=== PATIENT | male | born 1960 | race Caucasian/White ===

== ENCOUNTER 2017-01-21 18:27 | Emergency (ER) | payer SELFPAY ==
[~2017-01-21] VITALS: Ht 167.6 cm; Wt 68.0 kg
[2017-01-21 18:49] VITALS: BP 140/87
== END 2017-01-21 18:43 | disposition left against medical advice (07) ==
LOC: EDBD 18:27 → ER 18:35
DX: F10.10 Alcohol abuse, uncomplicated (principal); Z53.21 Procedure and treatment not carried out due to patient leaving prior to being seen by health care provider

== ENCOUNTER 2018-12-10 09:40 | Emergency (ER) | payer MEDICAID, OTHER ==
[~2018-12-10] VITALS: Ht 170.2 cm; Wt 72.6 kg
[2018-12-10 10:13] VITALS: BP 134/87
[2018-12-10] MEDS ORDERED: KETOROLAC TROMETH 60MG/2ML VIAL IM ONE (10:30)
== END 2018-12-10 11:16 | disposition home or self-care (01) ==
LOC: ER 09:45
DX: M54.2 Cervicalgia (principal)
CPT/HCPCS: 96372; 99283; J1885

== ENCOUNTER 2019-09-22 13:53 | Inpatient (IN) | payer MEDICAID ==
[~2019-09-22] VITALS: Ht 172.7 cm; Wt 73.2 kg
[2019-09-22 14:27] LABS: Basophils # (auto) 0 10 ^3/uL (0-0.2); Eosinophils # (auto) 0 10 ^3/uL (0-0.8); Hemoglobin 7.4 g/dL (13.5-17.5); Lymphocytes # (auto) 0.3 10 ^3/uL (0.4-5.4); Mean Corpuscular Hemoglobin 28.1 pg (28.0-32.0); Monocytes # (auto) 0.7 10 ^3/uL (0-1.3); Monocytes % (auto) 11.5 % (0.0-12.0); Neutrophils % (auto) 82.9 % (37.0-80.0)
[2019-09-22 14:40] LABS: Albumin 2.4 g/dL (3.4-5.0); Calcium 7.4 mg/dL (8.5-10.1); Potassium 4.1 mmol/L (3.5-5.1)
[2019-09-22 14:44] LABS: BUN/Creatinine Ratio 17.6; Bilirubin, Total 12.4 mg/dL (0.2-1.0); Total Protein 6.7 g/dL (6.4-8.2)
[2019-09-22 15:24] LABS: Basophils % (auto) 0.8 % (0.0-2.0); Eosinophils % (auto) 0.2 % (0.0-7.0); Hematocrit 23.4 % (41.0-53.0); Lymphocytes % (auto) 4.6 % (10.0-50.0); Mean Corpuscular Hgb Conc. 31.9 g/dL (32.0-36.0); Mean Corpuscular Volume 88.2 fL (80.0-100.0); Nucleated Red Blood Cells % 0.1 %; Platelet Count (auto) 159 10^3/uL (140-450); Red Blood Cells 2.65 10^6/uL (4.5-5.90); White Blood Cell 6.1 10^3/uL (4.4-10.8)
[2019-09-22 15:41] LABS: Red Cell Distribution Width 21.1 % (11.8-14.3)
[2019-09-22 15:55] LABS: Amylase 143 U/L (25-115); Lipase 1268 U/L (73-393)
[2019-09-22] MEDS ORDERED: PIPERACILLIN-TAZOB 3.375GM 100 ML IV ONE (16:45)
[2019-09-22] MEDS ORDERED: PANTOPRAZOLE 40mg/50ML NS AE 50 ML IV ONE (16:45)
[2019-09-22] MEDS ORDERED: SODIUM CHL 3% 500 ML IV ONE (16:45)
[2019-09-22 17:56] LABS: Lactic Acid w/Reflex 4.3 mmol/L (0.4-2.0)
[2019-09-22] MEDS ORDERED: LORazepam 2MG/ML-1ML VIAL IV ONE (18:30)
[2019-09-22] MEDS ORDERED: THIAMINE 100mg/ml INJ (200mg/2ml VIAL) IV ONE (18:30)
[2019-09-22] MEDS ORDERED: chlordiazePOXIDE HCL 5 MG CAP PO ONE (18:30)
[2019-09-22] MEDS ORDERED: NITROGLYCERIN 0.4 MG SL TAB SL PRN (19:00)
[2019-09-22] MEDS ORDERED: MORPHINE SULF INJ 2 MG/ML SYRINGE 1ML IV PRN (19:00)
[2019-09-22] MEDS ORDERED: SODIUM CHLORIDE 0.9% 1,000 ML IV ONE (19:00)
[2019-09-22] MEDS: PANTOPRAZOLE 40 MG TAB PO SCH (21:47)
[2019-09-23] VITALS (10 sets, daily range): BP systolic 94–123; BP diastolic 53–69
[2019-09-23 05:56] LABS: Basophils # (auto) 0 10 ^3/uL (0-0.2); Eosinophils # (auto) 0 10 ^3/uL (0-0.8); Eosinophils % (auto) 0.4 % (0.0-7.0); Lymphocytes # (auto) 0.2 10 ^3/uL (0.4-5.4); Mean Corpuscular Hemoglobin 28.2 pg (28.0-32.0); Monocytes # (auto) 0.5 10 ^3/uL (0-1.3); Neutrophils # (auto) 3.3 10 ^3/uL (1.6-8.6); Nucleated Red Blood Cells % 0.3 %; Red Blood Cells 2.32 10^6/uL (4.5-5.90); White Blood Cell 4.1 10^3/uL (4.4-10.8)
[2019-09-23 06:04] LABS: Basophils % (auto) 1.1 % (0.0-2.0); Hematocrit 20.7 % (41.0-53.0); Mean Corpuscular Hgb Conc. 31.6 g/dL (32.0-36.0); Mean Corpuscular Volume 89.1 fL (80.0-100.0); Monocytes % (auto) 13.4 % (0.0-12.0); Neutrophils % (auto) 81.1 % (37.0-80.0); Platelet Count (auto) 113 10^3/uL (140-450)
[2019-09-23 06:09] LABS: Albumin 2.1 g/dL (3.4-5.0); Calcium 6.9 mg/dL (8.5-10.1)
[2019-09-23 06:18] LABS: INR 1.96 (0.9-1.15); Partial Thromboplastin Time 33.1 sec (23.64-32.05)
[2019-09-23 06:20] LABS: BUN/Creatinine Ratio 20.2; Bilirubin, Total 12.7 mg/dL (0.2-1.0); Total Protein 5.8 g/dL (6.4-8.2)
[2019-09-23 06:22] LABS: Hemoglobin 6.5 g/dL (13.5-17.5); Red Cell Distribution Width 20.6 % (11.8-14.3)
[2019-09-23] MEDS: chlordiazePOXIDE HCL 25 MG CAP PO SCH ×5 (06:26→23:40)
[2019-09-23 08:59] LABS: Urine Bacteria NONE SEEN /hpf (None Seen); Urine Blood TRACE /uL (Negative); Urine Specific Gravity 1.017 (1.001-1.035); Urine WBC <1 /hpf (0 - 3)
[2019-09-23 09:23] LABS: Eosinophils % (auto) 0.3 % (0.0-7.0); Red Cell Distribution Width 19.7 % (11.8-14.3)
[2019-09-23 09:25] LABS: Basophils # (auto) 0 10 ^3/uL (0-0.2); Basophils % (auto) 0.3 % (0.0-2.0); Eosinophils # (auto) 0 10 ^3/uL (0-0.8); Hematocrit 22.3 % (41.0-53.0); Hemoglobin 7.2 g/dL (13.5-17.5); Lymphocytes # (auto) 0.2 10 ^3/uL (0.4-5.4); Lymphocytes % (auto) 4.1 % (10.0-50.0); Mean Corpuscular Hemoglobin 28.3 pg (28.0-32.0); Mean Corpuscular Hgb Conc. 32.4 g/dL (32.0-36.0); Mean Corpuscular Volume 87.2 fL (80.0-100.0); Monocytes # (auto) 0.5 10 ^3/uL (0-1.3); Monocytes % (auto) 12.7 % (0.0-12.0); Neutrophils # (auto) 3.2 10 ^3/uL (1.6-8.6); Neutrophils % (auto) 82.6 % (37.0-80.0); Nucleated Red Blood Cells % 0.3 %; Platelet Count (auto) 103 10^3/uL (140-450); Red Blood Cells 2.55 10^6/uL (4.5-5.90); White Blood Cell 3.9 10^3/uL (4.4-10.8)
[2019-09-23] MEDS: PANTOPRAZOLE 40 MG TAB PO SCH ×2 (09:36→22:48)
[2019-09-23] MEDS ORDERED: FOLIC ACID 1 MG, MULTIPLE VITAMIN 10 ML, MAGNESIUM SULF SDV 50% 8 MEQ, THIAMINE INJ 100... INJ SCH ×5 (12:00)
[2019-09-23 13:14] LABS: Alcohol, Urine < 3.0 mg/dL (0-5); Amphetamine Screen, Urine POSITIVE (NEGATIVE); Barbiturate Scree,Urine NEGATIVE (NEGATIVE); Benzodiazephine Screen, Urine NEGATIVE (NEGATIVE); Cannabinoid Screen, Urine NEGATIVE (NEGATIVE); Cocaine Screen, Urine NEGATIVE (NEGATIVE); Opiate Scree,Urine NEGATIVE (NEGATIVE); Phencyclidine Screen, Urine NEGATIVE (NEGATIVE)
[2019-09-23 14:34] LABS: Potassium 3.9 mmol/L (3.5-5.1)
[2019-09-23 14:40] LABS: BUN/Creatinine Ratio 22.9
[2019-09-23] MEDS ORDERED: FUROSEMIDE 40 MG/4 ML VIAL IV ONE (15:00)
[2019-09-23] MEDS ORDERED: SPIRONOLACTONE 25 MG TAB PO ONE (15:00)
[2019-09-23 15:16] LABS: Protein, Urine 20.7 mg/dL (0.0-11.9)
[2019-09-24] VITALS (13 sets, daily range): BP systolic 91–111; BP diastolic 51–64
[2019-09-24 05:57] LABS: Basophils # (auto) 0 10 ^3/uL (0-0.2); Lymphocytes # (auto) 0.3 10 ^3/uL (0.4-5.4); Lymphocytes % (auto) 8.2 % (10.0-50.0); Monocytes # (auto) 0.4 10 ^3/uL (0-1.3); Neutrophils # (auto) 2.4 10 ^3/uL (1.6-8.6); White Blood Cell 3.1 10^3/uL (4.4-10.8)
[2019-09-24 06:00] LABS: Basophils % (auto) 0.5 % (0.0-2.0); Eosinophils # (auto) 0.1 10 ^3/uL (0-0.8); Eosinophils % (auto) 1.8 % (0.0-7.0); Hematocrit 21.2 % (41.0-53.0); Mean Corpuscular Hemoglobin 28.6 pg (28.0-32.0); Mean Corpuscular Hgb Conc. 32.8 g/dL (32.0-36.0); Mean Corpuscular Volume 87.1 fL (80.0-100.0); Neutrophils % (auto) 77.5 % (37.0-80.0); Nucleated Red Blood Cells % 0.3 %; Platelet Count (auto) 109 10^3/uL (140-450); Red Blood Cells 2.44 10^6/uL (4.5-5.90); Red Cell Distribution Width 19.7 % (11.8-14.3)
[2019-09-24 06:07] LABS: INR 1.83 (0.9-1.15)
[2019-09-24 06:12] LABS: Albumin 2.1 g/dL (3.4-5.0); Calcium 7.2 mg/dL (8.5-10.1); Magnesium 2.1 mg/dL (1.6-2.6); Potassium 3.4 mmol/L (3.5-5.1)
[2019-09-24 06:21] LABS: BUN/Creatinine Ratio 20.6; Bilirubin, Total 13.9 mg/dL (0.2-1.0); Total Protein 5.8 g/dL (6.4-8.2)
[2019-09-24] MEDS: chlordiazePOXIDE HCL 25 MG CAP PO SCH ×4 (06:34→23:52)
[2019-09-24] MEDS ORDERED: POTASSIUM EFFERVESENT TAB 25 MEQ PO ONE (09:45)
[2019-09-24] MEDS: THIAMINE 100mg/ml INJ (200mg/2ml VIAL) IV SCH (10:36)
[2019-09-24] MEDS: FUROSEMIDE 40 MG/4 ML VIAL IV SCH (10:37)
[2019-09-24] MEDS: SPIRONOLACTONE 25 MG TAB PO SCH (10:38)
[2019-09-24] MEDS: MULTIPLE VITAMINS W/ MINERALS TAB PO SCH (10:38)
[2019-09-24] MEDS: PANTOPRAZOLE 40 MG TAB PO SCH ×2 (10:39→22:45)
[2019-09-24] MEDS ORDERED: PHYTONADIONE(VitK) ORAL Susp 10mg/10ml(1mg/ml) PO ONE (11:45)
[2019-09-24 16:20] LABS: Hematocrit 22.8 % (41.0-53.0); Hemoglobin 7.5 g/dL (13.5-17.5)
[2019-09-25] VITALS: BP 96/55
[2019-09-25 04:00] VITALS: BP 104/56
[2019-09-25] MEDS: chlordiazePOXIDE HCL 25 MG CAP PO SCH ×4 (06:05→23:56)
[2019-09-25 07:03] LABS: Hematocrit 22.7 % (41.0-53.0); Hemoglobin 7.5 g/dL (13.5-17.5)
[2019-09-25 07:22] LABS: INR 1.71 (0.9-1.15)
[2019-09-25 07:40] VITALS: BP 117/65
[2019-09-25 08:33] LABS: Blood Urea Nitrogen 22 mg/dL (7-18); Chloride 96 mmol/L (98-107); Potassium 4.4 mmol/L (3.5-5.1); Sodium 128 mmol/L (136-145)
[2019-09-25 08:37] LABS: Amylase 129 U/L (25-115); Anion Gap 11 (5-15); BUN/Creatinine Ratio 17.6; Bilirubin, Total 15.9 mg/dL (0.2-1.0); Calcium 6.8 mg/dL (8.5-10.1); Carbon Dioxide 21 mmol/L (21-32); GFR African American 76 mL/min; GFR Non-African American 63 mL/min; Glucose 76 mg/dL (74-106)
[2019-09-25 08:52] LABS: Lipase 1574 U/L (73-393)
[2019-09-25] MEDS: FUROSEMIDE 40 MG/4 ML VIAL IV SCH (09:12)
[2019-09-25] MEDS: PANTOPRAZOLE 40 MG TAB PO SCH ×2 (09:13→21:24)
[2019-09-25] MEDS: MULTIPLE VITAMINS W/ MINERALS TAB PO SCH (09:13)
[2019-09-25] MEDS: SPIRONOLACTONE 25 MG TAB PO SCH (09:13)
[2019-09-25] MEDS: THIAMINE 100mg/ml INJ (200mg/2ml VIAL) IV SCH (09:13)
[2019-09-25] MEDS ORDERED: ONDANSETRON HCL 4 MG/2 ML VIAL IV PRN (10:45)
[2019-09-25] MEDS ORDERED: NICOTINE 21MG/24 HR TOPICAL PATCH TD ONE ×2 (10:45)
[2019-09-25 11:35] VITALS: BP 117/66
[2019-09-25] MEDS ORDERED: PHYTONADIONE(VitK) ORAL Susp 10mg/10ml(1mg/ml) PO ONE (11:45)
[2019-09-25 17:00] VITALS: BP 107/69
[2019-09-25 22:00] VITALS: BP 98/68
[2019-09-26] MEDS: chlordiazePOXIDE HCL 25 MG CAP PO SCH ×3 (05:57→18:29)
[2019-09-26 06:00] VITALS: BP 108/67
[2019-09-26 07:08] LABS: Basophils # (auto) 0 10 ^3/uL (0-0.2); Hematocrit 23.4 % (41.0-53.0); Lymphocytes # (auto) 0.3 10 ^3/uL (0.4-5.4); Monocytes # (auto) 0.3 10 ^3/uL (0-1.3); Neutrophils # (auto) 1.2 10 ^3/uL (1.6-8.6)
[2019-09-26 07:11] LABS: Basophils % (auto) 1.6 % (0.0-2.0); Eosinophils # (auto) 0 10 ^3/uL (0-0.8); Eosinophils % (auto) 2.3 % (0.0-7.0); Hemoglobin 7.8 g/dL (13.5-17.5); Lymphocytes % (auto) 14.4 % (10.0-50.0); Mean Corpuscular Hemoglobin 28.8 pg (28.0-32.0); Mean Corpuscular Hgb Conc. 33.2 g/dL (32.0-36.0); Mean Corpuscular Volume 86.6 fL (80.0-100.0); Neutrophils % (auto) 64.7 % (37.0-80.0); Nucleated Red Blood Cells % 0.1 %; Platelet Count (auto) 100 10^3/uL (140-450); Red Cell Distribution Width 18.2 % (11.8-14.3)
[2019-09-26 07:14] LABS: INR 1.72 (0.9-1.15)
[2019-09-26 07:17] LABS: Albumin 2.1 g/dL (3.4-5.0); Calcium 7.6 mg/dL (8.5-10.1); Potassium 3.1 mmol/L (3.5-5.1)
[2019-09-26 07:19] LABS: White Blood Cell 1.9 10^3/uL (4.4-10.8)
[2019-09-26 07:20] LABS: BUN/Creatinine Ratio 15.5; Bilirubin, Total 17.4 mg/dL (0.2-1.0); Total Protein 5.9 g/dL (6.4-8.2)
[2019-09-26 09:00] VITALS: BP 96/59
[2019-09-26 09:25] LABS: Hepatitis B Surface Antibody Negative
[2019-09-26] MEDS ORDERED: POTASSIUM EFFERVESENT TAB 25 MEQ PO ONE (09:30)
[2019-09-26 09:56] LABS: Hepatitis A Total Antibody Positive
[2019-09-26 11:23] LABS: Hepatitis B Core Total AB Negative; Hepatitis B Surface Antigen Negative (Negative); Hepatitis C Antibody Negative (Negative)
[2019-09-26] MEDS: MULTIPLE VITAMINS W/ MINERALS TAB PO SCH (11:37)
[2019-09-26] MEDS: PANTOPRAZOLE 40 MG TAB PO SCH ×2 (11:37→22:00)
[2019-09-26] MEDS: SPIRONOLACTONE 25 MG TAB PO SCH (11:37)
[2019-09-26] MEDS: THIAMINE 100mg/ml INJ (200mg/2ml VIAL) IV SCH (11:40)
[2019-09-26] MEDS: NICOTINE 21MG/24 HR TOPICAL PATCH TD SCH (11:41)
[2019-09-26] MEDS ORDERED: POTASSIUM CHL 20 Meq TABLET PO ONE (11:45)
[2019-09-26] MEDS ORDERED: PHYTONADIONE(VitK) ORAL Susp 10mg/10ml(1mg/ml) PO ONE (11:45)
[2019-09-26] MEDS: LACTULOSE 20Gm/30ML SOLN PO SCH ×2 (12:53→22:00)
[2019-09-26 13:00] VITALS: BP 103/62
[2019-09-26] MEDS ORDERED: FUROSEMIDE 100 MG/10ML VIAL IV ONE (13:15)
[2019-09-26 22:00] VITALS: BP 87/43
[2019-09-27] VITALS (8 sets, daily range): BP systolic 84–142; BP diastolic 45–88
[2019-09-27] MEDS: chlordiazePOXIDE HCL 25 MG CAP PO SCH ×2 (00:13→06:09)
[2019-09-27] MEDS ORDERED: SODIUM CHLORIDE 0.9% 500 ML IV ONE (05:15)
[2019-09-27 07:37] LABS: Hemoglobin 6.9 g/dL (13.5-17.5)
[2019-09-27 07:40] LABS: INR 1.76 (0.9-1.15)
[2019-09-27 07:49] LABS: Potassium 3.8 mmol/L (3.5-5.1)
[2019-09-27 07:52] LABS: BUN/Creatinine Ratio 14.5
[2019-09-27] MEDS ORDERED: SODIUM CHLORIDE 0.9% 1,000 ML IV SCH (09:30)
[2019-09-27] MEDS ORDERED: FUROSEMIDE 100 MG/10ML VIAL IV SCH (10:00)
[2019-09-27] MEDS: LACTULOSE 20Gm/30ML SOLN PO SCH ×2 (10:24→21:48)
[2019-09-27] MEDS: THIAMINE 100mg/ml INJ (200mg/2ml VIAL) IV SCH (10:24)
[2019-09-27] MEDS: SPIRONOLACTONE 25 MG TAB PO SCH (10:25)
[2019-09-27] MEDS: MULTIPLE VITAMINS W/ MINERALS TAB PO SCH (10:25)
[2019-09-27] MEDS: PANTOPRAZOLE 40 MG TAB PO SCH ×2 (10:25→21:48)
[2019-09-27] MEDS: NICOTINE 21MG/24 HR TOPICAL PATCH TD SCH (10:25)
[2019-09-27] MEDS ORDERED: SODIUM CHLORIDE 0.9% 1,000 ML IV ONE (10:30)
[2019-09-27] MEDS ORDERED: PHYTONADIONE (VIT K)10 MG/ML 1ML VIAL SUBCUT ONE ×2 (11:45→12:30)
[2019-09-27] MEDS: chlordiazePOXIDE HCL 25 MG CAP PO PRN (14:49)
[2019-09-28] MEDS: chlordiazePOXIDE HCL 25 MG CAP PO PRN ×3 (04:33→21:00)
[2019-09-28 05:47] VITALS: BP 90/55
[2019-09-28 06:11] LABS: Hematocrit 27.3 % (41.0-53.0); Mean Corpuscular Hemoglobin 29.1 pg (28.0-32.0); Mean Corpuscular Volume 88.2 fL (80.0-100.0); Platelet Count (auto) 108 10^3/uL (140-450); Red Blood Cells 3.09 10^6/uL (4.5-5.90); Red Cell Distribution Width 18.6 % (11.8-14.3); White Blood Cell 2.6 10^3/uL (4.4-10.8)
[2019-09-28 06:15] LABS: Band Neutrophils % (manual) 0; Basophils % (manual) 0 (0.0-2.0); Blast Cells 0; Metamyelocytes % 0; Myelocytes % 0; Promyelocytes % 0; Reactive Lymphocytes 0
[2019-09-28 06:23] LABS: INR 1.65 (0.9-1.15)
[2019-09-28 06:28] LABS: Albumin 1.8 g/dL (3.4-5.0); Calcium 7.1 mg/dL (8.5-10.1); Magnesium 1.9 mg/dL (1.6-2.6); Potassium 3.4 mmol/L (3.5-5.1)
[2019-09-28 06:30] LABS: BUN/Creatinine Ratio 15.9
[2019-09-28 06:42] LABS: Bilirubin, Total 16.6 mg/dL (0.2-1.0); Total Protein 5.5 g/dL (6.4-8.2)
[2019-09-28 06:57] LABS: Eosinophils % (manual) 1 (0-7); Lymphocytes % (manual) 15 (10.0-50.0); Monocytes % (manual) 15 (0-12)
[2019-09-28 09:00] VITALS: BP 93/47
[2019-09-28] MEDS: PANTOPRAZOLE 40 MG TAB PO SCH ×2 (09:08→20:59)
[2019-09-28] MEDS: MULTIPLE VITAMINS W/ MINERALS TAB PO SCH (09:08)
[2019-09-28] MEDS: THIAMINE 100mg/ml INJ (200mg/2ml VIAL) IV SCH (09:08)
[2019-09-28] MEDS: LACTULOSE 20Gm/30ML SOLN PO SCH ×2 (09:08→20:59)
[2019-09-28] MEDS: NICOTINE 21MG/24 HR TOPICAL PATCH TD SCH (09:09)
[2019-09-28] MEDS ORDERED: MAGNESIUM SULFATE 1GM/100ML 100 ML IV ONE (12:45)
[2019-09-28] MEDS ORDERED: PHYTONADIONE(VitK) ORAL Susp 10mg/10ml(1mg/ml) PO ONE (12:45)
[2019-09-28] MEDS ORDERED: POTASSIUM CHL 20 Meq TABLET PO ONE (12:45)
[2019-09-28 13:00] VITALS: BP 99/53
[2019-09-28] MEDS: SODIUM CHLORIDE 0.9% 1,000 ML IV SCH (13:30)
[2019-09-28 17:00] VITALS: BP 101/62
[2019-09-28 22:01] VITALS: BP 114/75
[2019-09-29] MEDS: chlordiazePOXIDE HCL 25 MG CAP PO PRN ×2 (04:32→20:04)
[2019-09-29 05:00] VITALS: BP 103/61
[2019-09-29 06:18] LABS: Hematocrit 26.3 % (41.0-53.0); Hemoglobin 8.7 g/dL (13.5-17.5)
[2019-09-29 06:31] LABS: INR 1.68 (0.9-1.15)
[2019-09-29 06:38] LABS: Potassium 3.6 mmol/L (3.5-5.1)
[2019-09-29 06:44] LABS: BUN/Creatinine Ratio 16.8; Bilirubin, Total 16.6 mg/dL (0.2-1.0); Calcium 7.3 mg/dL (8.5-10.1)
[2019-09-29] MEDS: SODIUM CHLORIDE 0.9% 1,000 ML IV SCH (09:05)
[2019-09-29] MEDS: PANTOPRAZOLE 40 MG TAB PO SCH ×2 (09:05→20:04)
[2019-09-29] MEDS: THIAMINE 100mg/ml INJ (200mg/2ml VIAL) IV SCH (09:05)
[2019-09-29] MEDS: MULTIPLE VITAMINS W/ MINERALS TAB PO SCH (09:05)
[2019-09-29] MEDS: NICOTINE 21MG/24 HR TOPICAL PATCH TD SCH (09:06)
[2019-09-29] MEDS: LACTULOSE 20Gm/30ML SOLN PO SCH ×2 (09:06→20:03)
[2019-09-29] MEDS ORDERED: PHYTONADIONE(VitK) ORAL Susp 10mg/10ml(1mg/ml) PO ONE (11:30)
[2019-09-29 22:00] VITALS: BP 108/59
[2019-09-29] MEDS: HYDROcodone-ACET 5/325MG TAB PO PRN (22:32)
[2019-09-30] MEDS: SODIUM CHLORIDE 0.9% 1,000 ML IV SCH ×2 (04:28→13:13)
[2019-09-30 07:26] LABS: Hematocrit 26.5 % (41.0-53.0); Hemoglobin 8.8 g/dL (13.5-17.5)
[2019-09-30 07:43] LABS: Basophils # (auto) 0.1 10 ^3/uL (0-0.2); Basophils % (auto) 1.9 % (0.0-2.0); Eosinophils # (auto) 0 10 ^3/uL (0-0.8); Eosinophils % (auto) 1.2 % (0.0-7.0); Hematocrit 26.9 % (41.0-53.0); Hemoglobin 8.9 g/dL (13.5-17.5); Lymphocytes # (auto) 0.5 10 ^3/uL (0.4-5.4); Lymphocytes % (auto) 13.3 % (10.0-50.0); Mean Corpuscular Hemoglobin 29.9 pg (28.0-32.0); Mean Corpuscular Hgb Conc. 32.9 g/dL (32.0-36.0); Mean Corpuscular Volume 90.7 fL (80.0-100.0); Monocytes # (auto) 0.5 10 ^3/uL (0-1.3); Monocytes % (auto) 11.9 % (0.0-12.0); Neutrophils # (auto) 2.8 10 ^3/uL (1.6-8.6); Neutrophils % (auto) 71.7 % (37.0-80.0); Platelet Count (auto) 143 10^3/uL (140-450); Red Blood Cells 2.97 10^6/uL (4.5-5.90); Red Cell Distribution Width 19.4 % (11.8-14.3); White Blood Cell 3.9 10^3/uL (4.4-10.8)
[2019-09-30 07:51] LABS: Magnesium 2.1 mg/dL (1.6-2.6); Potassium 3.9 mmol/L (3.5-5.1)
[2019-09-30 07:53] LABS: Bilirubin, Total 17.6 mg/dL (0.2-1.0)
[2019-09-30 08:00] VITALS: BP 95/58
[2019-09-30] MEDS ORDERED: diphenhdrAMINE HCL 50 MG/1 ML VL ONE (08:06)
[2019-09-30] MEDS ORDERED: LIDOCAINE VISCOUS 2% 15ML UD ONE (08:06)
[2019-09-30] MEDS ORDERED: SODIUM CHLORIDE LOCK 10 ML ONE (08:06)
[2019-09-30] MEDS ORDERED: MIDAZOLAM HCL 5 MG/ML-1ML VIAL ONE (08:06)
[2019-09-30] MEDS ORDERED: fentaNYL CITRATE 100 MCG/2 ML VL ONE (08:06)
[2019-09-30 08:09] LABS: INR 1.69 (0.9-1.15)
[2019-09-30 09:00] VITALS: BP 95/58
[2019-09-30] MEDS: MULTIPLE VITAMINS W/ MINERALS TAB PO SCH (10:42)
[2019-09-30] MEDS: PANTOPRAZOLE 40 MG TAB PO SCH ×2 (10:42→22:00)
[2019-09-30] MEDS: THIAMINE 100mg/ml INJ (200mg/2ml VIAL) IV SCH (10:42)
[2019-09-30] MEDS: LACTULOSE 20Gm/30ML SOLN PO SCH ×2 (10:42→22:00)
[2019-09-30] MEDS: NICOTINE 21MG/24 HR TOPICAL PATCH TD SCH (10:43)
[2019-09-30 13:00] VITALS: BP 97/56
[2019-09-30] MEDS: chlordiazePOXIDE HCL 25 MG CAP PO PRN (15:40)
[2019-09-30 17:00] VITALS: BP 95/59
[2019-09-30 21:34] VITALS: BP 102/56
[2019-10-01] VITALS (8 sets, daily range): BP systolic 92–113; BP diastolic 54–70
[2019-10-01] MEDS: HYDROcodone-ACET 5/325MG TAB PO PRN ×2 (02:19→18:21)
[2019-10-01] MEDS: SODIUM CHLORIDE 0.9% 1,000 ML IV SCH ×2 (05:25→22:15)
[2019-10-01 06:50] LABS: Hematocrit 25.8 % (41.0-53.0); Hemoglobin 8.6 g/dL (13.5-17.5)
[2019-10-01 07:00] LABS: INR 1.71 (0.9-1.15)
[2019-10-01 07:05] LABS: Calcium 6.9 mg/dL (8.5-10.1); Potassium 3.9 mmol/L (3.5-5.1)
[2019-10-01 07:20] LABS: Bilirubin, Total 17.2 mg/dL (0.2-1.0)
[2019-10-01] MEDS: PANTOPRAZOLE 40 MG TAB PO SCH ×3 (10:00→22:14)
[2019-10-01] MEDS: MULTIPLE VITAMINS W/ MINERALS TAB PO SCH ×2 (10:00→10:33)
[2019-10-01] MEDS ORDERED: PHYTONADIONE(VitK) ORAL Susp 10mg/10ml(1mg/ml) PO ONE (10:15)
[2019-10-01] MEDS: LACTULOSE 20Gm/30ML SOLN PO SCH ×2 (10:33→22:00)
[2019-10-01] MEDS: THIAMINE 100mg/ml INJ (200mg/2ml VIAL) IV SCH (10:33)
[2019-10-01] MEDS: NICOTINE 21MG/24 HR TOPICAL PATCH TD SCH (10:34)
[2019-10-01] MEDS ORDERED: MULT-351 PO (13:10)
[2019-10-01] MEDS ORDERED: FER325T PO (13:10)
[2019-10-01] MEDS ORDERED: THIA100T5 PO (13:10)
[2019-10-01] MEDS ORDERED: PANT40TA2 PO (13:10)
[2019-10-01] MEDS ORDERED: LACT10SO3 PO (13:11)
[2019-10-01] MEDS: FERROUS SULFATE 325 MG TAB PO SCH (18:12)
[2019-10-02] MEDS: HYDROcodone-ACET 5/325MG TAB PO PRN (03:14)
[2019-10-02 05:00] VITALS: BP 96/60
[2019-10-02] MEDS: FERROUS SULFATE 325 MG TAB PO SCH ×3 (09:55→12:03)
[2019-10-02] MEDS: MULTIPLE VITAMINS W/ MINERALS TAB PO SCH ×2 (09:55→12:03)
[2019-10-02] MEDS: LACTULOSE 20Gm/30ML SOLN PO SCH ×2 (09:55→12:03)
[2019-10-02] MEDS: PANTOPRAZOLE 40 MG TAB PO SCH ×2 (09:56→12:03)
[2019-10-02] MEDS: THIAMINE HCL 100 MG TAB PO SCH ×2 (09:56→12:03)
[2019-10-02] MEDS: NICOTINE 21MG/24 HR TOPICAL PATCH TD SCH (09:56)
[2019-10-02] MEDS ORDERED: PHYTONADIONE(VitK) ORAL Susp 10mg/10ml(1mg/ml) PO ONE (10:00)
[2019-10-02] MEDS: SODIUM CHLORIDE 0.9% 1,000 ML IV SCH (14:20)
== END 2019-10-02 16:35 | DRG 241 ==
LOC: EDBD 13:53 → EDSEX 13:53 → ER 13:53 → TELE 13:54 → DOU IN ICU 09-24 16:12 → EAST 09-25 12:38 → TELE-EAST 09-29 03:33
PROVIDERS: ADMIT Nurse Practitioner Acute Care; ATTEND Internal Medicine
PROC: 30233N1 Transfusion of Nonautologous Red Blood Cells into Peripheral Vein, Percutaneous Approach (ICD-10-PCS; 2019-09-23)
PROC: 30233L1 Transfusion of Nonautologous Fresh Plasma into Peripheral Vein, Percutaneous Approach (ICD-10-PCS; 2019-09-23)
PROC: 30233K1 Transfusion of Nonautologous Frozen Plasma into Peripheral Vein, Percutaneous Approach (ICD-10-PCS; 2019-09-23)
PROC: 0DJ08ZZ Inspection of Upper Intestinal Tract, Via Natural or Artificial Opening Endoscopic (ICD-10-PCS; principal; 2019-09-30 09:44)
DX: K29.70 Gastritis, unspecified, without bleeding (principal); N17.0 Acute kidney failure with tubular necrosis; K85.20 Alcohol induced acute pancreatitis without necrosis or infection; E44.0 Moderate protein-calorie malnutrition; D68.4 Acquired coagulation factor deficiency; D68.9 Coagulation defect, unspecified; E87.1 Hypo-osmolality and hyponatremia; D69.6 Thrombocytopenia, unspecified; K20.9 Esophagitis, unspecified; K76.6 Portal hypertension; K72.90 Hepatic failure, unspecified without coma; K70.31 Alcoholic cirrhosis of liver with ascites; D64.9 Anemia, unspecified; F10.288 Alcohol dependence with other alcohol-induced disorder; F17.210 Nicotine dependence, cigarettes, uncomplicated; F15.10 Other stimulant abuse, uncomplicated; J47.9 Bronchiectasis, uncomplicated; K59.00 Constipation, unspecified; K40.20 Bilateral inguinal hernia, without obstruction or gangrene, not specified as recurrent; E87.6 Hypokalemia; Y90.9 Presence of alcohol in blood, level not specified; Z79.899 Other long term (current) drug therapy; K44.9 Diaphragmatic hernia without obstruction or gangrene; K31.89 Other diseases of stomach and duodenum; Z51.5 Encounter for palliative care; Z91.19 Patient's noncompliance with other medical treatment and regimen; Z75.1 Person awaiting admission to adequate facility elsewhere; Z90.49 Acquired absence of other specified parts of digestive tract; Z68.24 Body mass index [BMI] 24.0-24.9, adult
CPT/HCPCS: 36415; 43235; 70450; 71045; 74176; 76705; 80048; 80053; 80307; 81001; 82140; 82150; 82247; 82270; 82570; 82962; 83540; 83550; 83605; 83690; 83735; 83880; 83930; 83935; 84132; 84156; 84300; 84550; 85007; 85014; 85018; 85025; 85027; 85610; 85730; 86301; 86704; 86706; 86708; 86803; 86850; 86900; 86901; 86920; 87040; 87340; 93005; 97163; 99291; G0378; J2250; J2543; J3430